=== PATIENT | female | born 1990 | race Caucasian/White ===

== ENCOUNTER 2019-05-30 11:48 | Emergency (ER) | payer OTHER, SELFPAY ==
[2019-05-30 12:11] VITALS: BP 123/76; PULSE 86; RESP 20; TEMP 36.8; O2SAT 100
--- NOTE | 2019-05-30 12:13 | ED.URI ---
HPI - URI/Sore Throat General Chief Complaint: Medical Clearance Stated Complaint: Cold/Flu Time Seen by Provider: 05/30/19 12:44 Source: patient and RN notes reviewed Mode of arrival: ambulatory Limitations: no limitations History of Present Illness HPI Narrative: 29-year-old female presents with need for flu testing per her employer. She denies any symptoms, fever, chills, cough, body aches, other cold symptoms. Reports her employer is requiring on place to be tested for the flu MD elicited complaint: other (Upper respiratory) Related Data Home Medications Medication Instructions Recorded Confirmed No Home Medications 05/30/19 05/30/19 Allergies Allergy/AdvReac Type Severity Reaction Status Date / Time ibuprofen Allergy Unknown Unknown Verified 05/30/19 12:23 Penicillins Allergy Unknown Unknown Verified 05/30/19 12:23 Review of Systems Review of Systems: Narrative: CONSTITUTIONAL: Denies malaise, chills, sweats, or fever. EYES: Denies visual changes, redness, or discharge. ENT: Denies rhinorrhea, congestion, sinus pain, otalgia and sore throat. CARDIOVASCULAR: Denies chest pain, palpitations, or edema. RESPIRATORY: Denies cough or dyspnea. GASTROINTESTINAL: Denies abdominal pain, nausea, vomiting, diarrhea SKIN: Denies rash or itching. MUSCULOSKELETAL: Denies myalgia. NEUROLOGIC: Denies headache. All systems reviewed & are unremarkable except as noted in HPI and below PMFSH Family History Family History (Updated 12/05/17 @ 11:37 by DOCTOR UNKNOWN) Other Hypertension Social History Social History Smoking status: Current every day smoker Alcohol intake: current Comments At time of signature, agree with nursing past medical, surgical, social and family history. There is no relevant family history pertinent to the presenting complaint Exam Narrative: Exam Narrative: GENERAL: Well-appearing, well-nourished, and in no acute distress. HEAD: Normocephalic EYES: PERRLA, conjunctivae clear ENT: Nares clear, turbinates pink, no discharge. Mucous membranes moist. TM pearly bryan with sharp light reflex bilaterally; no tragal tenderness. Oropharynx not erythematous without lesions. Tonsils not enlarged and without exudate, no drooling, no hoarseness, no trismus, uvula midline. NECK: Supple. No lymphadenopathy CHEST: Clear to auscultation, breath sounds equal. No wheezing, rhonchi, rales, or stridor. No respiratory distress, speaks in full sentences. HEART: Regular rate and rhythm. No murmur heard. SKIN: Warm, dry, no rash. NEURO: Alert and oriented x3. PSYCH: Normal mood and affect Course Course Emergency Course: Patient is aware of diagnosis, understands and agrees to treatment plan. Anticipatory guidance given. Patient agrees to follow-up as directed and is aware of reasons to seek care at the emergency department. Portions of this record may have been created with voice recognition software Vital Signs Vital signs: Reviewed. MDM - URI/Sore Throat MDM Narrative Medical decision making narrative: Differential diagnosis considered: Strep pharyngitis, allergic rhinitis, upper respiratory tract infection, sinusitis, rhinosinusitis, nasopharyngitis. viral pharyngitis, otitis media, otitis externa, pneumonia, bronchitis, viral cough syndrome, viral syndrome, and influenza. Exam findings show no acute concerns or changes; patient is non-toxic appearing and is in no distress. Patient is appropriate for outpatient treatment and follow-up. Lab Data Attestation: I reviewed the patient's lab results. Labs: Influenza A Screen Negative Reference Range: Negative Influenza B Screen Negative Reference Range: Negative Critical Care Time Critical Care Time Critical Care Time: No Discharge Plan Discharge Clinical Impression: Worried well Patient Disposition: Home, Self-Care Condition: Stable Additional Instructions: You tested negative for influenza A/B to
== END 2019-05-30 12:55 | disposition home or self-care (01) ==
PROVIDERS: Emergency Provider Nurse Practitioner; PCP Internal Medicine
DX: Z71.1 Person with feared health complaint in whom no diagnosis is made (principal); F17.200 Nicotine dependence, unspecified, uncomplicated
CPT/HCPCS: 87804; 99212; G0463

== ENCOUNTER 2019-11-29 10:39 | Emergency (ER) | payer OTHER, SELFPAY ==
[2019-11-29 10:45] VITALS: BP 121/75; PULSE 93; RESP 14; TEMP 36.9; O2SAT 100
--- NOTE | 2019-11-29 10:55 | ED.NAVMDI ---
HPI - Nausea/Vomiting/Diarrhea General Chief complaint: Nausea/Vomiting/Diarrhea Stated complaint: nausea and some fever Time Seen by Provider: 11/29/19 11:16 Source: patient History of Present Illness HPI Narrative: Patient is presents with a 3-day history of nausea and vomiting. Patient denies any abdominal pain no fever no cough runny nose. Patient denies any low back pain no flank pain. Patient does report some burning with urination. Patient denies any pelvic pain no concern for STDs. Patient states she is able to tolerate liquids well. Patient states she took to have her mother's Zofran's and they did not help much with the nausea. Related Data Allergies Allergy/AdvReac Type Severity Reaction Status Date / Time ibuprofen Allergy Unknown Ulcers Verified 11/29/19 10:56 Penicillins Allergy Unknown Hives Verified 11/29/19 10:56 Review of Systems Allergic/Immunologic: Comments: CONSTITUTIONAL: Denies fever, chills, or sweats. EYES: Denies visual changes, redness, or discharge. ENT: Denies rhinorrhea, congestion, sore throat, or otalgia. CARDIOVASCULAR: Denies chest pain, palpitations, or edema. RESPIRATORY: Denies cough or dyspnea. GASTROINTESTINAL: Denies abdominal pain, vomiting, or diarrhea. Reports nausea for the last 3 days GENITOURINARY: Denies dysuria or hematuria. SKIN: Denies rash or itching. MUSCULOSKELETAL: Denies back pain, joint pain, or myalgia. NEUROLOGIC: Denies headache, numbness, or weakness. PSYCHIATRIC: Denies anxiety or depression. [facility] Family History Family History (Updated 12/05/17 @ 11:37 by DOCTOR UNKNOWN) Other Hypertension Social History Social History Smoking status: Current every day smoker Alcohol intake: current Comments At time of signature, agree with nursing past medical, surgical, social and family history. There is no relevant family history pertinent to the presenting complaint Exam Narrative: Exam Narrative: GENERAL: Well-appearing, well-nourished, and in no acute distress. HEAD: Normocephalic, atraumatic. EYES: PERRLA and EOMI. ENT: Nares clear, no rhinorrhea or epistaxis. Mucous membranes moist. NECK: Supple. CHEST: Clear to auscultation. No respiratory distress. HEART: Regular rate and rhythm. No murmur heard. Normal peripheral pulses. ABDOMEN: Soft, nontender, nondistended, normal active bowel sounds. EXTREMITIES: Normal range of motion. No edema. SKIN: Warm, dry, no rash. NEURO: No focal deficits. Alert and oriented x3. Lesa Coma Scale Eye Opening: Spontaneous 4 Lesa Coma Scale Motor: Obeys Commands 6 [place] Coma Scale Verbal: Oriented 5 Lesa Coma Scale Total 15 Course Vital Signs Vital signs: Vital Signs Temperature 36.9 C 11/29/19 10:45 Pulse Rate 93 11/29/19 10:45 Respiratory Rate 14 11/29/19 10:45 Blood Pressure 121/75 11/29/19 10:45 Pulse Oximetry 100 11/29/19 10:45 Temperature 36.9 C 11/29/19 10:45 Pulse Rate 93 11/29/19 10:45 Respiratory Rate 14 11/29/19 10:45 Blood Pressure 121/75 11/29/19 10:45 Pulse Oximetry 100 11/29/19 10:45 Discussed with patient to try Protonix every night to see if it helps with the nausea. Increase fluids and take Macrobid as prescribed for urinary symptoms. Follow-up with primary care provider in 2 to 3 days for reevaluation. Discussed red flags and when to go to ER enforced the need of any worsening of symptoms any new symptoms occur go to ER immediately further evaluation. Follow-up with primary care provider in 2 to 3 days for repeat urinalysis. MDM - Nausea/Vomiting/Diarrhea Lab Data Attestation: I reviewed the patient's lab results. Labs: UCG Bedside Result Negative Reference Range: Negative Urine Glucose Negative Reference Range: Negative Urine Bilirubin Negative Reference Range: Negative Urine Ketone Negative Reference Range: Negative Urine Specific [place]
== END 2019-11-29 11:18 | disposition home or self-care (01) ==
PROVIDERS: Emergency Provider Nurse Practitioner Family
DX: N39.0 Urinary tract infection, site not specified (principal); F17.200 Nicotine dependence, unspecified, uncomplicated
CPT/HCPCS: 81003; 81025; 87077; 87086; 87088; 99213; G0463

== ENCOUNTER 2020-06-04 16:10 | Outpatient (CLI) | payer OTHER, SELFPAY ==
--- NOTE | ~2020-06-04 | CT_ITS ---
EXAMINATION: CT sinus wo con DATE: 06/04/2020 16:29 INDICATION: Congestion, sinusitis TECHNIQUE: Computed tomography (CT) of the paranasal sinuses was performed without contrast. Iterativ e reconstruction technique was employed. Exam dose: 257.43 mGy-cm total exam DLP. COMPARISON: 06/05/2017 CT sinuses FINDINGS: Midline nasal septum. Bilateral widely patent nasal antral windows. There is stable patchy opacification at the frontoethmoid region bilaterally, not significantly garcia ed in appearance since 06/05/2017. There is patchy opacification of the ethmoid air cells bilaterally. Mildly improved since 05/26/2017. Relatively stable minimal mucoperiosteal thickening in the anteromedial aspect of the right sphenoid sinus. The sphenoid sinuses are otherwise unremarkable. Bilateral nodular mucoperiosteal thickening of the maxillary sinuses, right greater than left, mildly improved since 06/05/2017. The mastoid air cells are normally developed and aerated. Middle and inner ear apparatus appear unremarkable bilaterally.. IMPRESSION: Mild improvement of bilateral paranasal sinus disease since 06/05/2017 Bilateral nasal antral windows since prior examination Reviewed, dictated and finalized at [facility] Reviewed, dictated and finalized at [facility] IMPRESSION: Mild improvement of bilateral paranasal sinus disease since 018 Bilateral nasal antral windows since prior examination
== END 2020-06-04 16:11 | disposition home or self-care (01) ==
LOC: ANHIMG 16:16
PROVIDERS: PCP Family Medicine; Visit Provider Otolaryngology
DX: R44.8 Other symptoms and signs involving general sensations and perceptions (principal); R51.9 Headache, unspecified; J32.9 Chronic sinusitis, unspecified
CPT/HCPCS: 70486

== ENCOUNTER → 2020-06-27 00:52 | Outpatient (CLI) | payer OTHER, SELFPAY ==
[2020-06-28 00:06] LABS: SARS-CoV-2 RNA PCR Negative
== END ==
PROVIDERS: PCP Family Medicine; Visit Provider Otolaryngology
DX: Z01.812 Encounter for preprocedural laboratory examination (principal); Z20.822 Contact with and (suspected) exposure to COVID-19
CPT/HCPCS: C9803; U0003; U0005

== ENCOUNTER 2020-06-30 02:13 | Day surgery (SDC) | payer OTHER, SELFPAY ==
[2020-06-15 10:48] VITALS: BMI 54.8
--- NOTE | 2020-06-29 08:56 | PM.IMHP ---
H&P: HPI History of Present Illness Date/Time: 06/29/20 08:56 30-year-old female presents for planned endoscopic sinus surgery. She reports no new symptoms or changes in her history. Chief Complaint: CRS, septal deviation, inferior turbinate hypertrophy, nasal obstruction. Review of Systems Constitutional: Constitutional: Denies fatigue, Denies fever(s) and Denies lethargy Eyes: Eyes: Denies blurry vision and Denies change in vision ENT: Reports as per HPI Cardiovascular: Cardiovascular: Denies chest pain Respiratory: Respiratory: Denies cough Endocrine: Endocrine: Denies fatigue Hematologic/Lymphatic: Hematologic/Lymphatic: Denies easy bleeding, Denies easy bruising and Denies lymphadenopathy Allergic/Immunologic: Allergic/Immunologic: Denies seasonal rhinorrhea [facility] Past Medical History Medical History (Updated 06/01/20 @ 10:49 by Hiram Dickinson MD) Allergies Asthma Headache Family History Family History (Updated 04/20/20 @ 15:32 by Christy Hastings MA) Father Alcoholism Hypertension Heart problem Mother Breast cancer Hypertension Depression Sibling Asthma Depression Grandparent Hypertension Cerebrovascular accident Heart problem Social History Social History Smoking packs per day: 0.05 Smoking cigarettes per day: 1.0 Years smoked: 18 Smoking pack-years: 0.90 Smoking status: Current every day smoker Alcohol intake: current Drinks per week: 1 Substance use: current Substance use type: does not use Gender identity (if verbalized by the patient): Female Spiritual care concerns: No Meds Home Medications and Allergies Home Medications Medication Instructions Recorded Confirmed Type fluticasone propionate 50 2 spray INTRANASAL BID #16 g 04/20/20 06/15/20 Rx mcg/actuation nasal spray,suspension albuterol sulfate 2 inh INHALATION QID PRN 06/15/20 06/15/20 History Allergies Allergy/AdvReac Type Severity Reaction Status Date / Time Penicillins Allergy Mild Hives Verified 06/15/20 11:08 ibuprofen Allergy Unknown Ulcers Verified 06/15/20 11:08 Exam Const: General: cooperative, healthy appearing, comfortable, well developed and alert HENMT: Head: normal to inspection, normocephalic and atraumatic Ears: hearing grossly normal bilaterally, external ears normal, TM's normal bilaterally and EAC's normal General nose exam: Normal external nose present, Normal nares present, No nasal polyps present, Normal nasal mucous membranes and turbinates present and Normal septum present Face and sinus: normal facial exam Mouth: Yes Normal oral and palatal mucosa present, Yes lip normal, Yes tongue normal, Yes oropharynx normal and Yes moist mucous membranes Teeth and gingiva: dentition normal and gingiva normal Throat: posterior oropharynx normal, tonsils normal and uvula midline Eyes: General: appearance normal, both eyes and all related structures Periorbital: periorbital findings normal Eyelids: eyelids normal Conjunctivae: conjunctivae normal Sclera: sclerae normal Neck: Neck: normal visual inspection, full ROM and no lymphadenopathy Thyroid: thyroid normal Lymphatic: no lymphadenopathy noted Resp: Effort & Inspection: normal respiratory effort and able to speak in complete sentences Cardio: Jugular venous distension: no JVD Neuro: Cranial nerves: Yes CN's II-XII intact bilaterally Assessment and Plan Assessment and plan (1) Nasal septal deviation: Code(s): J34.2 - Deviated nasal septum Status: Acute Assessment and Plan: Plan is for the operating for endoscopic sinus surgery including maxillary antrostomies frontal sinusotomies total ethmoidectomies and sphenoidotomies. Given the patient has some degree of nasal obstruction will also perform a septoplasty and turbinate reduction. the risks were discussed including bleeding infection damage to brain CSF leak change
[2020-06-30] VITALS (14 sets, daily range): BP systolic 104–135; BP diastolic 46–93; PULSE 62–90; RESP 12–20; TEMP 36–36.6; O2SAT 94–98
--- NOTE | 2020-06-30 07:15 | WPDHPUPDATE1 ---
History and Physical Update Update Date/Time: 06/30/20 07:15 History and Physical has been reviewed, including an updated exam of the patient. There are NO changes in the patient's condition. Risks, benefits, and alternatives have been discussed and questions answered. Patient agrees to proceed with procedure.
[2020-06-30] MEDS: ACETAMINOPHEN 500 MG TABLET 1000 MG PO (07:37)
[2020-06-30] MEDS: LACTATED RINGERS 1,000 ML 30 ML IV CONT ×2 (07:37→11:22)
--- NOTE | 2020-06-30 07:56 | WPDANESEPPF ---
Anes - Initial Pre Proc Eval Procedure: Operation Date: 06/30/20 09:00 Proposed Procedures p Image Guided Bilateral Maxillary Antrostomy, Bilateral Sphenoidectomy, Frontal Sinusotomy, Total Ethmoidectomy, Bilateral Inferior Turbinectomy, - Hiram Dickinson MD s Septoplasty - Hiram Dickinson MD Date/Time: 06/30/20 07:56 Surgeon: Hiram Dickinson MD Pre Op Diagnosis: chronic sinusitis Patient Data Age: 30 Gender: F Height: 5 ft 4 in Weight: 145 kg Last Vital Signs Temp 36.0 C L 06/30/20 07:15 Pulse 90 06/30/20 07:15 Resp 18 06/30/20 07:15 BP 104/73 06/30/20 07:15 Pulse Ox 98 06/30/20 07:15 Allergies Allergy/AdvReac Type Severity Reaction Status Date / Time Penicillins Allergy Mild Hives Verified 06/30/20 07:05 ibuprofen Allergy Unknown Ulcers Verified 06/30/20 07:05 Home Medications Medication Instructions Recorded Confirmed Type fluticasone propionate 50 2 spray INTRANASAL BID #16 g 04/20/20 06/30/20 Rx mcg/actuation nasal spray,suspension albuterol sulfate 2 inh INHALATION QID PRN 06/15/20 06/30/20 History Patient hx anesthesia problems: none Family hx anesthesia problems: none PMFSH Past Medical History Medical History (Updated 06/30/20 @ 07:56 by Markie Tomas MD) Allergies Asthma Headache Morbid obesity Surgical History Surgical History (Updated 06/30/20 @ 07:56 by Markie Tomas MD) H/O sinus surgery Family History Family History Father Alcoholism Hypertension Heart problem Mother Breast cancer Hypertension Depression Sibling Asthma Depression Grandparent Hypertension Cerebrovascular accident Heart problem Social History Social History Smoking packs per day: 0.05 Smoking cigarettes per day: 1.0 Years smoked: 18 Smoking pack-years: 0.90 Smoking status: Current every day smoker Alcohol intake: current Drinks per week: 1 Substance use: current Substance use type: does not use Living arrangements: with family Gender identity (if verbalized by the patient): Female Sexual Orientation (if Verbalized by the Patient): Straight or Heterosexual Spiritual care concerns: No Anes - Eval Final PreProcedure Day of Procedure 06/30/20 07:56 Patient weight: morbidly obese Heart: regular rate and rhythm Lungs: clear to auscultation Airway: Mallampati scale class II Neurological: alert and oriented Last oral intake: >/= 8 hours ASA classification: III Emergent: no Anesthetic plan: proceed Anesthesia type and monitoring: general ETT and standard monitoring Informed Consent: The patient's anesthetic plan and its attendant risks and benefits were discussed with the patient/family/POA. Questions were solicited and answers provided to the satisfaction of the patient/family/POA.
[2020-06-30] MEDS: OXYMETAZOLINE HCL 0.05% NAS 15 ML BTL (*BKC) 1 SPRAY NASAL (08:31)
[2020-06-30] MEDS: CLINDAMYCIN 900 MG/D5W 50 ML 900 MG/50 ML PIGGYBACK 50 MG IVPB (08:31)
[2020-06-30] MEDS: LIDO 1%/EPINEPHRINE 1:100,000 50 ML VIAL INFILTRATE (08:31)
[2020-06-30] MEDS: fentaNYL CITRATE INJ (*CRX) 100 MCG/2 ML VIAL 25 MCG IV PUSH ×6 (11:37→12:51)
--- NOTE | 2020-06-30 11:53 | PM.PROC ---
Procedure Note - Detailed Date of procedure: 06/30/20 Pre-op diagnosis: chronic sinusitis Nasal obstruction, septal deviation, inferior turbinate hypertrophy Post-op diagnosis: same Procedure performed: Septoplasty Inferior turbinate reduction submucosally with outfracture Bilateral Endoscopic maxillary antrostomies Bilateral frontal sinusotomies endoscopic Bilateral sphenoidotomies endoscopic Bilateral endoscopic total ethmoidectomies Description of procedure: Patient was correctly identified and consent was verified in the preoperative holding area. The patient was then brought to the operating room and a time-out was performed. General anesthesia was induced and endotracheal tube was secured the patient's airway and taped to the left lower lip. The image guided system was then initiated. Afrin-soaked pledgets were placed the bilateral nasal passages and allowed to sit for 5 minutes and then removed. The patient was then prepped and draped for the aforementioned procedure. Under endoscopic guidance the bilateral nasal passages reviewed. Left septal deviation and bilateral inferior turbinate hypertrophy were noted. The right-sided middle turbinate was medialized. Backbiter to the left was utilized to complete the uncinectomy and widen the or the previous your the present maxillary antrostomy. Polypoid tissue was noted removed with micro debrider. Kerrison was then utilized to perform total ethmoidectomy. The sphenoid os was located using image guidance as well as a J curette. This was opened and widened using a Kerrison as well as microdebrider. The skull base was then worked posteriorly to anterior using Kerrison to ensure all of the cells and partitions were removed. Similar procedures were performed on the left following septoplasty. The septoplasty 5 cc 1% lidocaine with 1 100,000 parts epinephrine were injected in the submucoperichondrial plane. A Nikita type incision on the left was performed with a 15 blade. Bilateral mucoperichondrial flaps were elevated with a 7 Maori suction and caudal elevator. The deviated septum was removed with a combination of endoscopic scissors Edgard forceps and Ariel Garcia forceps. This was closed anteriorly with 2 interrupted 5 0 fast gut sutures. The frontal sinuses were then examined exudative the frontal sinus outflow tracts were then examined under 7 degree endoscopic visualization. The outflow tracts were cannulated using a frontal sinus 70 degree suction. Partitions that were obstructive removed with a combination of frontal sinus instruments including Cobra, punch and draft instruments. Redundant edematous mucosa was removed with the 60 degree micro debrider. At the end of this the inferior turbinates were reduced the submucosal plane as they were entered anteriorly using a micro debrider with inferior turbinate blade. They were then outfractured using Blanco elevator. The bilateral mulberry tips were debrided using the micro debrider as well. Hemostasis was noted to be excellent. The bilateral middle meati I were packed using in Nova pack which is a cotton based absorbable packing material. Of note prior to the frontal sinusotomies the anterior heads of the middle turbinates were removed and it draft to be fashion. The Carmona splints were trimmed so that there was no superior portion lateralizing the middle turbinates. Carmona splints were placed bilaterally and sutured anteriorly using a mattressed 3 0 nylon suture. Again hemostasis was acceptable. Care of the patient was turned over to Anesthesiology. I was therefore for and performed all portions of this procedure. Anesthesia: GETA Surgeon: Hiram Dickinson MD Estimated blood loss (mL): 100 Pathology: none sent Complications: No immediate complications Condition: stable Disposition: PACU
--- NOTE | 2020-06-30 12:05 | SUR.PHASEI ---
[id number]-Dr. Tomas and Dr. Dickinson at bedside with patient after episode of emesis with undigested food and blood with clots noted. Patient noted to have audible upper airway wheezing.
[2020-06-30] MEDS: ONDANSETRON INJ 4 MG/2 ML VIAL IV PUSH (13:06)
--- NOTE | 2020-06-30 13:56 | SUR.PHASEII ---
1356 - Dr. Dickinson called and aware of pt having emesis with blood. no orders received at this time.
== END 2020-06-30 14:40 | disposition home or self-care (01) ==
PROVIDERS: PCP Family Medicine; Visit Provider Otolaryngology
PROC: (CPT 31256; principal; 2020-06-30 09:00)
PROC: (CPT 30520; 2020-06-30 09:00)
DX: J32.9 Chronic sinusitis, unspecified (principal); J34.3 Hypertrophy of nasal turbinates; J34.2 Deviated nasal septum; J45.909 Unspecified asthma, uncomplicated; E66.01 Morbid (severe) obesity due to excess calories; Z68.43 Body mass index [BMI] 50.0-59.9, adult; Z79.51 Long term (current) use of inhaled steroids; F17.210 Nicotine dependence, cigarettes, uncomplicated
CPT/HCPCS: 31256; 31257; 31253; 61782; 30140; 30520; A9270; J0330; J2250; J2405; J2704; J3010; J7120

== ENCOUNTER 2021-03-29 12:39 | Emergency (ER) | payer OTHER, SELFPAY ==
[2021-03-29 12:46] VITALS: BP 114/72; PULSE 113; RESP 20; TEMP 37.2; O2SAT 96
--- NOTE | 2021-03-29 12:46 | ED.NAVMDI ---
HPI - Nausea/Vomiting/Diarrhea General Chief complaint: Nausea/Vomiting/Diarrhea Stated complaint: Vomiting/Diarrhea Time Seen by Provider: 03/29/21 12:46 Source: patient and RN notes reviewed History of Present Illness HPI Narrative: Patient is a 31-year-old female who presents the urgent care with complaints of vomiting and diarrhea since Monday. Patient also reports a fever, body aches and chills. Denies of any known exposure to COVID and has not been COVID vaccinated. Patient has been taking Tylenol and ibuprofen for her symptoms. Denies of any shortness of breath or abdominal pain. Patient does have a history of asthma. No other acute complaints. No acute distress noted. Patient aware of the plan of care. Some parts of this dictation were generated by voice recognition software and may contain typographical and/or grammatical inaccuracies. Related Data Home Medications Medication Instructions Recorded Confirmed albuterol sulfate 2 inh INHALATION QID PRN 06/15/20 03/29/21 Allergies Allergy/AdvReac Type Severity Reaction Status Date / Time Penicillins Allergy Mild Hives Verified 03/29/21 12:55 ibuprofen Allergy Unknown Ulcers Verified 03/29/21 12:55 Review of Systems Review of Systems: CONSTITUTIONAL: Reports a fever and chills EYES: Denies visual changes, redness, or discharge. ENT: Denies rhinorrhea, congestion, sore throat, or otalgia. CARDIOVASCULAR: Denies chest pain, palpitations, or edema. RESPIRATORY: Denies cough or dyspnea. GASTROINTESTINAL: Reports of nausea, vomiting and diarrhea GENITOURINARY: Denies dysuria or hematuria. SKIN: Denies rash or itching. MUSCULOSKELETAL: Denies back pain, joint pain, or myalgia. NEUROLOGIC: Denies headache, numbness, or weakness. All other systems reviewed are negative, except as documented in HPI. [facility] Past Medical History Medical History (Updated 03/29/21 @ 13:29 by NIYA Urban) Allergies Asthma Headache Morbid obesity Surgical History Surgical History (Updated 06/30/20 @ 07:56 by Markie Tomas MD) H/O sinus surgery Family History Family History Father Alcoholism Hypertension Heart problem Mother Breast cancer Hypertension Depression Sibling Asthma Depression Grandparent Hypertension Cerebrovascular accident Heart problem Social History Social History Smoking packs per day: 0.05 Smoking cigarettes per day: 1.0 Years smoked: 18 Smoking pack-years: 0.90 Smoking status: Current every day smoker Alcohol intake: current Drinks per week: 1 Substance use: current Substance use type: does not use Gender identity (if verbalized by the patient): Female Sexual Orientation (if Verbalized by the Patient): Straight or Heterosexual Spiritual care concerns: No Comments At the time of my signature, I reviewed and agree with the nursing past medical, surgical, social, and family history. There is no relevant family history pertinent to the patient complaint. Exam Narrative: GENERAL: This is a well-nourished, well-developed patient, in no apparent distress. HEAD: normocephalic, atraumatic. EYES: PERRL. Sclera clear/white. Vision is grossly intact. EARS: External ears normal, auditory canals clear and without drainage, TMs normal without perforation. Hearing grossly intact. NOSE: External nose normal with no obvious nasal discharge, nares without redness, no rhinorrhea. THROAT: Mucous membranes moist, posterior pharynx clear. Moderate postnasal drainage NECK: Neck supple CARDIOVASCULAR: Regular rate and rhythm without murmurs, gallops, or rubs. RESPIRATORY: Expiratory wheezes throughout with slightly diminished bibasilar GASTROINTESTINAL: Abdomen soft, non-tender, nondistended. Bowel sounds are active. SKIN: warm, intact with no suspicious lesions or rash, good texture and turgor. NEURO: awake
[2021-03-29 12:56] VITALS: BP 114/72; PULSE 113; RESP 20; TEMP 37.2; O2SAT 96
== END 2021-03-29 13:38 | disposition home or self-care (01) ==
PROVIDERS: Emergency Provider Nurse Practitioner Family; PCP Family Medicine
DX: U07.1 COVID-19 (principal); F17.210 Nicotine dependence, cigarettes, uncomplicated; J45.909 Unspecified asthma, uncomplicated; E66.01 Morbid (severe) obesity due to excess calories; Z68.43 Body mass index [BMI] 50.0-59.9, adult
CPT/HCPCS: 87426; 87804; 99213; C9803; G0463

== ENCOUNTER 2022-01-27 16:14 | Emergency (ER) | payer OTHER, SELFPAY ==
[2022-01-27 16:16] VITALS: BP 135/76; PULSE 101; RESP 20; TEMP 36.9; O2SAT 98
--- NOTE | 2022-01-27 16:16 | ED.URI ---
HPI - URI/Sore Throat General Chief Complaint: Upper Respiratory Infection Stated Complaint: sore throat, left ear pain Time Seen by Provider: 01/27/22 16:16 Source: patient and RN notes reviewed History of Present Illness HPI Narrative: patient is a 31-year-old female who presents to urgent care complaints of left ear pain, sore throat, congestion cough. Patient states left ear pain started 2 hours ago in the rest of the symptoms have been 2 days. Patient is not taking anything for her symptoms. States that she is asthmatic and has had minimal wheezing however she is out of her inhaler. Denies any fever, nausea vomiting. Denies shortness of breath. No other acute complaints. No acute distress noted. Patient aware of the plan of care. Some parts of this dictation were generated by voice recognition software and may contain typographical and/or grammatical inaccuracies. Related Data Allergies Allergy/AdvReac Type Severity Reaction Status Date / Time Penicillins Allergy Mild Hives Verified 01/27/22 16:31 ibuprofen Allergy Unknown Ulcers Verified 01/27/22 16:31 Review of Systems Review of Systems: CONSTITUTIONAL: Denies fever, chills, or sweats. EYES: Denies visual changes, redness, or discharge. ENT: reports of left otalgia, sore throat postnasal drainage CARDIOVASCULAR: Denies chest pain, palpitations, or edema. RESPIRATORY: reports of cough with intermittent wheezing GASTROINTESTINAL: Denies abdominal pain, nausea, vomiting, or diarrhea. GENITOURINARY: Denies dysuria or hematuria. SKIN: Denies rash or itching. MUSCULOSKELETAL: Denies back pain, joint pain, or myalgia. NEUROLOGIC: Denies headache, numbness, or weakness. All other systems reviewed are negative, except as documented in HPI. [facility] Past Medical History Medical History (Updated 01/27/22 @ 16:34 by NIYA Urban) Allergies Asthma Headache Morbid obesity Surgical History Surgical History (Updated 06/30/20 @ 07:56 by Markie Tomas MD) H/O sinus surgery Family History Family History Father Alcoholism Hypertension Heart problem Mother Breast cancer Hypertension Depression Sibling Asthma Depression Grandparent Hypertension Cerebrovascular accident Heart problem Social History Social History Smoking packs per day: 0.05 Smoking cigarettes per day: 1.0 Years smoked: 18 Smoking pack-years: 0.90 Smoking status: Current every day smoker Alcohol intake: current Drinks per week: 1 Substance use: current Substance use type: does not use Gender identity (if verbalized by the patient): Female Sexual Orientation (if Verbalized by the Patient): Straight or Heterosexual Spiritual care concerns: No Comments At the time of my signature, I reviewed and agree with the nursing past medical, surgical, social, and family history. There is no relevant family history pertinent to the patient complaint. Exam Narrative: GENERAL: This is a well-nourished, well-developed patient, in no apparent distress. HEAD: normocephalic, atraumatic. EYES: PERRL. Sclera clear/white. Vision is grossly intact. EARS: External ears normal, auditory canals clear and without drainage, moderately diffuse/erythema left TM with mild retraction. right TM normal without perforation. Hearing grossly intact. NOSE: External nose normal with no obvious nasal discharge, nares without redness, no rhinorrhea. THROAT: Mucous membranes moist, posterior pharynx clear. Moderate postnasal drainage NECK: Neck supple CARDIOVASCULAR: Regular rate and rhythm without murmurs, gallops, or rubs. RESPIRATORY: mild inspiratory wheezes throughout. SKIN: warm, intact with no suspicious lesions or rash, good texture and turgor. NEURO: awake, alert, and oriented to person, place and time. There were no obvious focal neurologic abnormalities. EXTR
== END 2022-01-27 16:48 | disposition home or self-care (01) ==
PROVIDERS: Emergency Provider Nurse Practitioner Family; PCP Family Medicine
DX: H66.92 Otitis media, unspecified, left ear (principal); J45.909 Unspecified asthma, uncomplicated; F17.210 Nicotine dependence, cigarettes, uncomplicated; E66.01 Morbid (severe) obesity due to excess calories; Z68.43 Body mass index [BMI] 50.0-59.9, adult
CPT/HCPCS: 99213; G0463

== ENCOUNTER 2022-08-29 13:45 | Emergency (ER) | payer OTHER, SELFPAY ==
--- NOTE | ~2022-08-29 | CT_ITS ---
EXAMINATION: CT abdomen pelvis w con DATE: 08/29/2022 15:46 INDICATION: abdominal pain TECHNIQUE: Computed tomography (CT) of the abdomen and pelvis was performed with 100 mL Omnipaque-350 intravenous contrast. Automated exposure control and iterative reconstruction technique were employe d. The dose-length product was 1610.54 mGy-cm. COMPARISON: 09/03/2018. FINDINGS: Lower thorax: Right middle lobe granuloma. Minimal dependent atelectasis. Liver: Hepatic steatosis. Biliary/Gallbladder: Gallbladder is absent. No bile duct dilation. Pancreas: No mass or duct dilation. Spleen: Normal. Adrenals:No mass. Kidneys: Subcentimeter right midpole hypodensity, too small to characterize but most likely represent s a cyst. No suspicious mass, obstructing stone, or hydronephrosis. GI tract: No small or large bowel dilation. Normal appendix. Mild diverticulosis, without diverticuli tis. Mesentery/Peritoneum: No ascites, mass, or free air. Retroperitoneum: No mass. Pelvis: Pelvic organs are within normal limits. Soft Tissues: Soft tissues and body wall unremarkable. Bones: No acute osseous finding. IMPRESSION: No acute abdominopelvic process detected. Reviewed, dictated and finalized at location K.
[2022-08-29 13:47] VITALS: BP 146/92; PULSE 95; RESP 17; TEMP 36.2; O2SAT 98
[2022-08-29 14:47] LABS: Basophils Percent Auto 0.4 % (0.2-1.2); Eosinophils Absolute Auto 0.5 K/mm3 (0-0.3); Eosinophils Percent Auto 5.4 % (0-4.4); Hematocrit 39.1 % (37.0-47.0); Hemoglobin 12.6 g/dL (12.0-15.0); Immature Granulocyte Absolute 0.06 K/mm3 (0.00-0.031); Immature Granulocyte Percent A 0.7 % (0-0.5); Mean Corpuscular HGB Conc 32.2 g/dl (32-36); Mean Corpuscular Volume 90.1 fl (80-100); Mean Platelet Volume 8.5 fl (7.4-10.4); Monocytes Absolute Auto 0.4 K/mm3 (0.1-0.6); Monocytes Percent Auto 4.5 % (2.6-8.5); Platelet Count Result 369 k/mm3 (150-375); Red Blood Count 4.34 M/mm3 (4.2-5.4); Red Cell Distribution Width 13.5 % (11.5-14.5); White Blood Count 8.3 K/mm3 (4.5-10.0)
[2022-08-29 15:00] LABS: Alanine Aminotransferase 34 U/L (6-35); Albumin Level 3.5 g/dL (3.5-5.1); Alkaline Phosphatase 55 U/L (38-126); Anion Gap 4 mmol/L (8-16); Aspartate Amino Transferase 31 U/L (14-36); Bilirubin,Total 0.6 mg/dL (0.2-1.3); Blood Urea Nitrogen 2 mg/dL (7-17); Calcium 8.2 mg/dL (8.4-10.2); Carbon Dioxide 28 mmol/L (22-30); Chloride 106 mmol/L (98-107); Estimated CRCL calculation 170 ml/min; Estimated Glomerular Filt Rate > 60; Glucose 88 mg/dL (65-110); Lactic Acid Reflex 1.2 mmol/L (0.7-2.0); Lipase 27 U/L (23-300); Potassium 3.4 mmol/L (3.4-5.0); Sodium 138 mmol/L (137-145)
[2022-08-29 15:20] LABS: Appearance Urine Cloudy (Clear); Bacteria Urine 1+ /hpf; Bilirubin Urine Negative (Negative); Blood Urine Negative (Negative); Color Urine Yellow (Yellow); Glucose Urine UA Negative (Negative); Ketones Urine Negative (Negative); Leukocyte Esterase Ur Negative LEU/UL (Negative); Need Manual Microscopic Reviewed; Nitrate Urine Negative (Negative); Non Pathogenic Casts 0-2; Protein Urine Negative (Negative); Specific Grav Ur 1.013 (1.001-1.035); Squamous Epithelial Cell Urine Many /hpf (Few); Urobilinogen Urine 0.2 mg/dL (<2.0); WBC Urine 0-5 /hpf
[2022-08-29 15:22] LABS: Add Urine Microscopic? YES
--- NOTE | 2022-08-29 16:14 | ED.ABDPAIN ---
HPI - Abdominal Pain General Chief Complaint: Abdominal Pain Stated Complaint: abd pain Time Seen by Provider: 08/29/22 13:51 Source: patient Mode of arrival: ambulatory Limitations: no limitations History of Present Illness HPI narrative: 32-year-old with a history of asthma, morbid obesity here with complaints of diffuse abdominal pain for 1 week. She states she went to her primary doctor this morning and was referred here to the ER for further evaluation. She denies any nausea, vomiting. She states that few days ago she had diarrhea. No history of blood in the stool. Denies urinary symptoms. MD elicited complaint: abdominal pain Pertinent past history: none Pain Consistency: constant Location: diffuse Severity: moderate Quality: aching Radiation: none Exacerbating factors: nothing Relieving factors: nothing Associated symptoms: denies other symptoms Related Data Allergies Allergy/AdvReac Type Severity Reaction Status Date / Time Penicillins Allergy Mild Hives Verified 08/29/22 16:24 ibuprofen Allergy Unknown Ulcers Verified 08/29/22 16:24 Review of Systems Eyes: Eyes: Reports no additional eye complaints ENT: Reports system reviewed and no additional complaints, except as documented Cardiovascular: Cardiovascular: Reports no additional cardiovascular complaints Respiratory: Respiratory: Reports no additional respiratory complaints Gastrointestinal: Gastrointestinal: Reports as per HPI Musculoskeletal: Musculoskeletal: Reports no additional musculoskeletal complaints Integumentary/Breasts: Skin/Breast: Reports system reviewed and no additional complaints, except as docu PMFSH Past Medical History Medical History Allergies Asthma Headache Morbid obesity Surgical History Surgical History H/O sinus surgery Family History Family History Father Alcoholism Hypertension Heart problem Mother Breast cancer Hypertension Depression Sibling Asthma Depression Grandparent Hypertension Cerebrovascular accident Heart problem Social History Social History Smoking packs per day: 0.05 Smoking cigarettes per day: 1.0 Years smoked: 18 Smoking pack-years: 0.90 Smoking status: Current every day smoker Alcohol intake: current Drinks per week: 1 Substance use: current Substance use type: does not use Lack of Transportation: No Lack of Food: Never True Current Housing: I Have Housing Concerned About Future Housing: No Difficulty Paying Gas/Electric Bills: No Difficulty Paying for Meds: No Currently Unemployed: No Education: High School Diploma/GED Difficulty w/ Childcare or Family Care: No Living arrangements: with family Gender identity (if verbalized by the patient): Female Sexual Orientation (if Verbalized by the Patient): Straight or Heterosexual Spiritual care concerns: No Exam Narrative: GENERAL: Well-appearing, morbidly obese, and in no acute distress. HEAD: Normocephalic, atraumatic. EYES: PERRLA and EOMI. NECK: Supple. CHEST: Clear to auscultation. No respiratory distress. HEART: Regular rate and rhythm. No murmur heard. Normal peripheral pulses. ABDOMEN: Soft, nontender, nondistended, normal active bowel sounds. EXTREMITIES: Normal range of motion. No edema. SKIN: Warm, dry, no rash. NEURO: No focal deficits. Alert and oriented x3. PSYCH: Normal mood and affect. Course Course Emergency Course: Notified patient about her lab work, CT findings because of her abdominal pain is unknown at this time. Recommended her to take Bentyl as prescribed., Follow-up with her primary doctor. Vital Signs Vital signs: Vital Signs Temperature 36.2 C L 08/29/22 13:47 Pulse Rate 95 08/29/22 13:47 Respiratory Rate 17
[2022-08-29 16:39] VITALS: BP 149/86; PULSE 88; RESP 16; O2SAT 97
== END 2022-08-29 16:40 | disposition home or self-care (01) ==
PROVIDERS: Emergency Provider Family Medicine; PCP Family Medicine
DX: R10.9 Unspecified abdominal pain (principal); J45.909 Unspecified asthma, uncomplicated; E66.01 Morbid (severe) obesity due to excess calories; Z68.43 Body mass index [BMI] 50.0-59.9, adult; F17.210 Nicotine dependence, cigarettes, uncomplicated
CPT/HCPCS: 36415; 74177; 80053; 81001; 81025; 83605; 83690; 85025; 99284; Q9967

== ENCOUNTER 2024-01-16 10:25 | Outpatient (CLI) | payer OTHER, SELFPAY ==
--- NOTE | ~2024-01-16 | CT_ITS ---
EXAMINATION: CT sinus wo con DATE: 01/16/2024 10:36 INDICATION: Other polyp of sinus. TECHNIQUE: Computed tomography (CT) of the paranasal sinuses was performed without intravenous contra st. Automated exposure control and iterative reconstruction technique were employed. The dose-length product was 309.35 mGy-cm. COMPARISON: CT sinuses 06/04/2020 FINDINGS: There is mild mucosal thickening in the frontal sinuses, ethmoid sinuses, sphenoid sinuses, and maxillary sinuses. There are uncinectomies and ethmoidectomies. The middle turbinates are parado xical. The ostiomeatal units are patent. The nasal septum is at the midline. IMPRESSION: 1. Mucosal thickening in the paranasal sinuses. Reviewed, dictated and finalized at location []
== END 2024-01-16 10:26 | disposition home or self-care (01) ==
LOC: ANHIMG 10:26
PROVIDERS: PCP Physician Assistant; Visit Provider Otolaryngology
DX: J32.0 Chronic maxillary sinusitis (principal); J33.8 Other polyp of sinus; J34.89 Other specified disorders of nose and nasal sinuses
CPT/HCPCS: 70486